=== PATIENT | female | born 2000 | race Caucasian/White ===

== ENCOUNTER 2020-10-07 16:41 | Inpatient (IN) | payer OTHER ==
[2020-10-07 17:02] VITALS: BMI 44.8
[2020-10-07] MEDS ORDERED: KETOROLAC TROMETHAMINE 60 MG/2 ML VIAL IM ONE (18:38)
[2020-10-07] MEDS ORDERED: morphine CARPU-JECT 4 MG/1 ML DISP.SYRIN IVPUSH ONE (19:48)
[2020-10-07] MEDS ORDERED: LIDOCAINE HCL 2% (50ML VIAL) SQ ONE (20:30)
[2020-10-07] MEDS ORDERED: LIDOCAINE HCL 1%, 10 MG/ML (20ML VIAL) ONE (20:43)
[2020-10-07 20:44] LABS: BASO % 0.2 % (0-2.0); EOS % 0.2 % (0-4.5); HEMATOCRIT 34.5 % (32.4-45.2); LYMPH % 9.8 % (8-40); MCHC 31.8 g/dl (32.0-36.0); MEAN CELL VOLUME 60.6 fl (80-96); MEAN PLT VOLUME 9.8 fl (7.5-11.1); MONO % 4.1 % (3.8-10.2); NEUT % 85.7 % (42.8-82.8); PLATELET COUNT 367 10^3/uL (134-434); RBC 5.69 M/mm3 (3.60-5.2); RDW 15.7 % (11.6-15.6); WHITE BLOOD COUNT 17.1 K/mm3 (4.0-10.0)
[2020-10-07 20:48] LABS: MCH 19.3 pg (25.7-33.7)
[2020-10-07 21:08] LABS: ALBUMIN 4.6 g/dl (3.4-5.0)
[2020-10-07 21:09] LABS: BLOOD UREA NITROGEN 12.2 mg/dL (7-18)
[2020-10-07 21:12] LABS: CREATININE 0.8 mg/dL (0.55-1.3)
[2020-10-07 21:13] LABS: BILIRUBIN,TOTAL 1.1 mg/dL (0.2-1)
[2020-10-08 01:12] LABS: PH,URINE 5.5 (5.0-8.0); URINE APPEARANCE CLEAR; URINE BILIRUBIN NEGATIVE (NEGATIVE); URINE COLOR YELLOW; URINE GLUCOSE (UA) NEGATIVE (NEGATIVE); URINE KETONE NEGATIVE (NEGATIVE); URINE LEUK ESTERASE NEGATIVE (NEGATIVE); URINE NITRITE NEGATIVE (NEGATIVE); URINE PROTEIN NEGATIVE (NEGATIVE); URINE UROBILINOGEN 0.2 mg/dL (0.2-1.0)
[2020-10-08 01:20] LABS: COCAINE, UR NEGATIVE (NEGATIVE); URINE BARBITURATES NEGATIVE (NEGATIVE); URINE BENZODIAZEPINES NEGATIVE (NEGATIVE)
[2020-10-08 01:21] LABS: METHADONE, UR NEGATIVE (NEGATIVE); OPIATES, URI NEGATIVE (NEGATIVE); PHENCYCLIDINE,URINE NEGATIVE (NEGATIVE); URINE AMPHETAMINES NEGATIVE (NEGATIVE)
[2020-10-08 01:22] LABS: HCG,QUALITATIVE URINE Negative
[2020-10-08 02:07] LABS: BASO % 0.4 % (0-2.0); EOS % 0.4 % (0-4.5); HEMATOCRIT 31.7 % (32.4-45.2); HEMOGLOBIN 10.2 GM/dL (10.7-15.3); LYMPH % 17.4 % (8-40); MCHC 32.3 g/dl (32.0-36.0); MEAN CELL VOLUME 59.5 fl (80-96); MEAN PLT VOLUME 9.6 fl (7.5-11.1); MONO % 8.6 % (3.8-10.2); NEUT % 73.2 % (42.8-82.8); PLATELET COUNT 323 10^3/uL (134-434); RBC 5.33 M/mm3 (3.60-5.2); RDW 15.6 % (11.6-15.6); WHITE BLOOD COUNT 15.3 K/mm3 (4.0-10.0)
[2020-10-08 02:10] LABS: MCH 19.2 pg (25.7-33.7)
[2020-10-08 02:34] LABS: INR 1.08 (0.83-1.09)
[2020-10-08 02:34] LABS: CHOLESTEROL 164 mg/dL (50-200); TRIGLYCERIDES 99 mg/dL (0-150)
[2020-10-08 02:35] LABS: LDL CHOLESTEROL (ONLY SJRH) 98 mg/dL (5-100)
[2020-10-08 02:36] LABS: HDL CHOLESTEROL 51 mg/dL (40-60)
[2020-10-08 02:37] LABS: ACTIVATED PTT 32.7 SECONDS (25.2-36.5)
[2020-10-08] MEDS ORDERED: morphine CARPU-JECT 4 MG/1 ML DISP.SYRIN IVPUSH ONE (02:57)
[2020-10-08] MEDS ORDERED: morphine CARPU-JECT 4 MG/1 ML DISP.SYRIN IVPUSH PRN (03:03)
[2020-10-08] MEDS: MORPHINE SULFATE 2 MG/ML VIAL IVPUSH PRN ×5 (03:08→21:46)
[2020-10-08 08:54] LABS: IRON SERUM 17 ug/dL (50-175)
[2020-10-08 08:57] LABS: TOTAL IRON BINDING CAPACITY 343 ug/dL (250-450)
[2020-10-08 08:58] LABS: RETICULOCYTES 1.91 % (0.5-1.5)
[2020-10-08 08:59] LABS: LDH 210 U/L (84-246)
[2020-10-08] MEDS ORDERED: ACETAMINOPHEN 1000 MG/100 ML VIAL (NON FORMULARY) IVPB PRN (13:49)
[2020-10-08] MEDS ORDERED: MELATONIN 5 MG TABLETS PO ONE (21:38)
[2020-10-08] MEDS: DOCUSATE SODIUM 100 MG CAPSULE (FP) PO SCH (21:57)
[2020-10-08] MEDS: oxyCODONE HCL 5 MG TABLET PO PRN (22:47)
[2020-10-09] MEDS: oxyCODONE HCL 5 MG TABLET PO PRN ×3 (06:16→13:37)
[2020-10-09] MEDS ORDERED: FERROUS SO4 325 MG TABLET (FP) PO SCH (08:00)
[2020-10-09 08:12] LABS: BASO % 0.5 % (0-2.0); EOS % 2.5 % (0-4.5); HEMATOCRIT 31.9 % (32.4-45.2); HEMOGLOBIN 10.2 GM/dL (10.7-15.3); LYMPH % 31.3 % (8-40); MCHC 31.8 g/dl (32.0-36.0); MEAN CELL VOLUME 60.5 fl (80-96); MEAN PLT VOLUME 10.4 fl (7.5-11.1); MONO % 9.6 % (3.8-10.2); NEUT % 56.1 % (42.8-82.8); PLATELET COUNT 306 10^3/uL (134-434); RBC 5.28 M/mm3 (3.60-5.2); RDW 15.4 % (11.6-15.6); WHITE BLOOD COUNT 12.1 K/mm3 (4.0-10.0)
[2020-10-09 08:14] LABS: MCH 19.3 pg (25.7-33.7)
[2020-10-09 08:29] LABS: CALCIUM 9.2 mg/dL (8.5-10.1)
[2020-10-09 08:30] LABS: BLOOD UREA NITROGEN 10.1 mg/dL (7-18); MAGNESIUM 2.1 mg/dL (1.8-2.4)
[2020-10-09 08:32] LABS: CREATININE 0.7 mg/dL (0.55-1.3)
[2020-10-09 08:34] LABS: BILIRUBIN,TOTAL 1.5 mg/dL (0.2-1); TOT PROT 7.2 g/dl (6.4-8.2)
[2020-10-09] MEDS: DOCUSATE SODIUM 100 MG CAPSULE (FP) PO SCH ×2 (10:25→10:29)
[2020-10-09 10:34] VITALS: BP 148/84; PULSE 70; TEMP 98.6
[2020-10-16 08:24] LABS: Hgb S 0
[2020-10-16 08:25] LABS: Hgb F 0.8
== END 2020-10-09 18:11 | disposition home or self-care (01) | DRG 342 ==
LOC: JER 16:41 → JERBED 21:49 → J4W 10-08 02:33
PROVIDERS: ADMIT Internal Medicine; ATTEND Internal Medicine
PROC: 0SSFXZZ Reposition Right Ankle Joint, External Approach (ICD-10-PCS; principal; 2020-10-07)
PROC: 2W3LX1Z Immobilization of Right Lower Extremity using Splint (ICD-10-PCS; 2020-10-07)
DX: S82.851A Displaced trimalleolar fracture of right lower leg, initial encounter for closed fracture (principal); D50.0 Iron deficiency anemia secondary to blood loss (chronic); R55 Syncope and collapse; E66.01 Morbid (severe) obesity due to excess calories; Z68.41 Body mass index [BMI] 40.0-44.9, adult; W18.30XA Fall on same level, unspecified, initial encounter; Y92.098 Other place in other non-institutional residence as the place of occurrence of the external cause; Z53.9 Procedure and treatment not carried out, unspecified reason
CPT/HCPCS: 36415; 71046-TC-FY; 73562-TC-RT-FY; 73590-TC-RT-FY; 73610-TC-RT-FY; 73630-TC-RT-FY; 73700-TC-RT; 80053; 80061; 80307; 81003; 82550; 82607; 82728; 82746; 83010; 83021; 83036; 83540; 83550; 83615; 83735; 84100; 84443; 84484; 84703; 85025; 85045; 85610; 85660; 85730; 86850; 86900; 86901; 87086; 93005; 93010; 93306-TC; 97116-GP; 97161-GP; 99285-25; C9803; U0003; U0005

== ENCOUNTER 2020-10-15 04:18 | Day surgery (SDC) | payer OTHER ==
[2020-10-13 15:36] VITALS: BMI 42.0
[2020-10-15] MEDS ORDERED: MIDAZOLAM HCL 2 MG/2 ML SINGLE DOSE VIAL ONE ×3 (09:42→10:37)
[2020-10-15] MEDS ORDERED: ONDANSETRON 4 MG/2 ML VIAL ONE (10:31)
[2020-10-15] MEDS ORDERED: DEXAMETHASONE SOD PHOSPHATE 4 MG/1 ML VIAL ONE (10:31)
[2020-10-15] MEDS ORDERED: ceFAZolin SODIUM 1 GM VIAL ONE (10:37)
[2020-10-15] MEDS ORDERED: ceFAZolin SODIUM 1 GM VIAL IVPB ONE (10:45)
[2020-10-15] MEDS ORDERED: ONDANSETRON 4 MG/2 ML VIAL IVPUSH PRN (13:46)
[2020-10-15] MEDS ORDERED: oxyCODONE HCL 5 MG TABLET PO PRN (13:46)
[2020-10-15] MEDS ORDERED: LACTATED RINGERS SOLUTION 1,000 ML IV SCH (14:00)
[2020-10-15 15:50] VITALS: BP 111/55; PULSE 87; TEMP 97.6
== END 2020-10-15 15:58 | disposition home or self-care (01) ==
LOC: JASU-SURG 04:18
PROVIDERS: ATTEND Podiatrist Foot & Ankle Surgery
PROC: 0QSG04Z Reposition Right Tibia with Internal Fixation Device, Open Approach (ICD-10-PCS; 2020-10-15)
PROC: 0QSJ04Z Reposition Right Fibula with Internal Fixation Device, Open Approach (ICD-10-PCS; principal; 2020-10-15 09:30)
DX: S82.841A Displaced bimalleolar fracture of right lower leg, initial encounter for closed fracture (principal); X58.XXXA Exposure to other specified factors, initial encounter; Y93.9 Activity, unspecified; Y92.9 Unspecified place or not applicable; Y99.8 Other external cause status
CPT/HCPCS: 27814; C1713; 73610-TC-RT-FY; 81025; 94760; C9803; U0003; U0005